=== PATIENT | female | born 1940 | race Caucasian/White ===

== ENCOUNTER → 2018-02-20 10:45 | Outpatient (CLI) | payer MEDICARE, SELFPAY | PROVIDERS: Visit Provider Nurse Practitioner Adult Health | DX: N76.0 Acute vaginitis (principal) | CPT/HCPCS: 87070; 87205 ==

== ENCOUNTER → 2018-04-05 09:50 | Outpatient (CLI) | payer MEDICARE, SELFPAY ==
--- NOTE | 2018-04-05 09:54 | BI_ITS ---
MAMMOGRAPHY - BILATERAL SCREENING REASON FOR EXAM: Female, 77 years old. Routine annual screening examination. PERTINENT HISTORY: Personal history of breast cancer. Prior right lumpectomy with radiation treatment. TECHNIQUE: Digital bilateral breast alan (3D mammographic acquisition) in the CC and MLO projections. 2-D mediolateral oblique (MLO) and craniocaudad (CC) views of both breasts were obtained. CAD: Full Field Digital Mammography with Computer Added Detection was performed. COMPARISON: Comparison is made with prior outside examination dated February 29, 2016. FINDINGS: Breast Composition: The breasts are heterogeneously dense, which may obscure small masses. There are no dominant masses or suspicious calcifications. Stable postoperative architectural distortion in the retroareolar region of the right breast in keeping with a history of prior lumpectomy. This is unchanged. No new mass lesion or cluster of microcalcification is seen. No other significant abnormalities are identified. There has been no significant change since the prior study. BI/SCREENING MAMM (CAD), BILAT IMPRESSION: Stable bilateral screening mammogram. Yearly follow-up mammogram recommended. (A) ASSESSMENT CATEGORY: BIRADS Category 2: Benign. A letter regarding these results will be sent to the patient by the facility within 30 days. Approximately 10% of breast cancers are not detected by mammography. A normal mammogram should not delay biopsy of a clinically suspicious abnormality. [id number] Electronically Signed: Braulio Harper MD at 10:52 EDT Tel [phone], Service support ,
== END ==
PROVIDERS: Visit Provider Family Medicine
DX: Z12.31 Encounter for screening mammogram for malignant neoplasm of breast (principal)
CPT/HCPCS: 77063; 77067

== ENCOUNTER → 2018-04-11 11:44 | Outpatient (CLI) | payer MEDICARE, SELFPAY ==
--- NOTE | 2018-04-11 11:48 | RAD_ITS ---
STUDY: X-RAY CHEST REASON FOR EXAM: Female, 77 years old. Cough TECHNIQUE: PA and lateral views of the chest. COMPARISON: None. FINDINGS: There is hyperinflation of the lungs consistent with chronic obstructive lung disease (COPD). Lungs are clear without acute airspace disease. There is no demonstrated pleural abnormality. Sternal cerclage wires and vascular clips are present from a prior sternotomy and coronary artery bypass graft procedure (CABG). Mild cardiomegaly. Normal mediastinum and yuri. Normal visualized pulmonary arteries. Normal visualized aortic arch and descending thoracic aorta. Normal visualized thoracic spine. Normal visualized ribs, clavicles, and shoulders. There is no demonstrated abnormality of the visualized soft tissue structures of the upper abdomen. RAD/Chest PA and Lateral IMPRESSION: COPD without acute findings. Electronically Signed: Tacho Madison DO at 11:12 EDT Tel , Service support ,
[2018-04-11 14:31] LABS: Hematocrit 41.6 % (37-47); Hemoglobin 14.3 g/dl (12.0-15.0); Mean Corp Hgb Conc 34.4 g/gl (32-36); Mean Corpuscular Hgb 32.2 pg (27.0-32.0); Mean Corpuscular Volume 93.7 fL (81-99); Mean Platelet Vol. 11.1 fl (6.2-12.0); Platelet Count 180 K/mm3 (150-450); RBC Distribution Width CV 13.9 % (11.6-14.6); RBC Distribution Width SD 45.9 fl (35.1-43.9); Red Blood Count 4.44 M/mm3 (4.2-5.4); White Blood Count 4.7 K/mm3 (4.4-11.0)
[2018-04-11 14:33] LABS: Scan Indicated on CBC? Y/N NO
[2018-04-11 15:03] LABS: Thyroid Stim Hormone (TSH) 1.27 uIU/mL (0.358-3.74)
== END ==
PROVIDERS: Family Provider Family Medicine; PCP Family Medicine; Visit Provider Family Medicine
DX: R05 Cough (principal); R53.83 Other fatigue
CPT/HCPCS: 36415; 71046; 84443; 85027

== ENCOUNTER → 2018-10-03 14:44 | Outpatient (CLI) | payer MEDICARE, SELFPAY ==
--- NOTE | 2018-10-03 14:49 | CT_ITS ---
STUDY: CT ABDOMEN AND PELVIS WITH CONTRAST REASON FOR EXAM: Female, 78 years old. Abdominal pain for 3 to 4 weeks. Bloating. History of hypertension and breast cancer. RADIATION DOSAGE (If Supplied By Facility): CTDIvol = ( 18.54 ) mGy, DLP = ( 838.33 ) mGycm TECHNIQUE: Transaxial images were obtained from the dome of the diaphragm to the symphysis pubis with oral contrast. 100mL ml of Isovue 300 contrast was administered. Sagittal and coronal images were reconstructed. Individualized dose optimization techniques were used for this CT. COMPARISON: None. FINDINGS: There is minimal atelectatic changes versus small mass in the right lateral costophrenic angle. The lungs appear otherwise clear. The heart is enlarged. The liver appears cirrhotic without mass. Normal gallbladder and extrahepatic biliary system. Normal spleen. Normal pancreas. There is a 1.6 x 1.6 x 2 cm low attenuation mass in the right adrenal gland consistent with adenoma. Normal left adrenal. There are multiple small cortical cysts. The right kidney is otherwise unremarkable. Normal left kidney. Normal visualized ureters. Mild thickening of the antral wall suggesting possible gastritis. The stomach is otherwise unremarkable. There is diffuse feces throughout the proximal colon. There is wall thickening and stranding with multiple diverticuli in the sigmoid consistent with acute diverticulitis. There is no evidence of perforation or abscess formation. Normal colon. There is non-visualization of the appendix. There are multiple mesenteric with prominence of both gonadal veins is also a large tortuous varices extending along the left mesentery through the proximal SMV at the level of the pancreatic head. Normal abdominal aorta. Normal inferior vena cava. Normal retroperitoneum. Normal urinary bladder. Normal uterus. There is no adnexal mass. No free air or free fluid is seen within the peritoneal cavity. Normal abdominal wall. There are degenerative changes of the lumbar spine with slight retrolisthesis of L2 on L3. CT/Abdomen/Pelvis WITH Contrast IMPRESSION: 1. Sigmoid diverticulitis without perforation or abscess. 2. Cirrhotic appearing liver without mass. 3. Mesenteric varices. 4. Right adrenal adenoma. 5. Degenerative changes of the lumbar spine. N.B. : The above information has been verbally conveyed by Yasmani Savage DO to Dr. Mj Groves MD, on 10/03/2018 19:18:43 (ET). Electronically Signed: Yasmani Savage DO at 18:29 EST Tel [phone], Service support ,
[2018-10-03 17:26] LABS: CREATININE FINGERSTICK 0.7 mg/dL (0.55-1.02); EGFR FINGERSTICK > 60.0000 mL/min (>60)
== END ==
PROVIDERS: Family Provider Family Medicine; PCP Family Medicine; Referring Provider Family Medicine; Visit Provider Family Medicine
DX: R10.9 Unspecified abdominal pain (principal)
CPT/HCPCS: 74177; Q9967; A4216

== ENCOUNTER → 2018-12-19 11:17 | Outpatient (CLI) | payer MEDICARE, SELFPAY ==
[2018-12-19 16:13] LABS: Thyroid Stim Hormone (TSH) 1.18 uIU/mL (0.358-3.74)
[2018-12-19 16:21] LABS: Absolute Lymphocyte Count 1.14 X10^3/ul (0.83-4.51); Basophil# 0.01 X10^3/uL; Basophil% 0.2 % (0-1); Eosinophils% 2.1 % (0-5); Hematocrit 42.9 % (37-47); Hemoglobin 13.8 g/dl (12.0-15.0); Lymphocyte # 1.14 X10^3/ul (4.0); Lymphocyte % 24.2 % (19-41); Mean Corp Hgb Conc 32.2 g/gl (32-36); Mean Corpuscular Hgb 30.3 pg (27.0-32.0); Mean Corpuscular Volume 94.3 fL (81-99); Mean Platelet Vol. 10.9 fl (6.2-12.0); Monocyte# 0.41 X10^3/uL; Monocyte% 8.7 % (0-10); Neutrophil # 3.04 X10^3/uL (2.7-7.7); Neutrophil % 64.6 % (47-70); Platelet Count 169 K/mm3 (150-450); RBC Distribution Width CV 15.3 % (11.6-14.6); RBC Distribution Width SD 51.5 fl (35.1-43.9); Red Blood Count 4.55 M/mm3 (4.2-5.4); White Blood Count 4.7 K/mm3 (4.4-11.0)
[2018-12-19 16:45] LABS: POSITIVE COUNT NO; POSITIVE DIFFERENTIAL NO; POSITIVE MORPHOLOGY NO
== END ==
PROVIDERS: Family Provider Family Medicine; PCP Family Medicine; Visit Provider Family Medicine
DX: R53.83 Other fatigue (principal)
CPT/HCPCS: 36415; 84443; 85025

== ENCOUNTER → 2019-01-01 08:13 | Outpatient (CLI) | payer MEDICARE, SELFPAY ==
[2019-01-01 10:38] LABS: Anion Gap 11 (5-15); BUN 14 mg/dL (7-18); BUN/Creat Ratio 22.6 RATIO (10-20); Calcium,Total 9.3 mg/dL (8.5-10.1); Chloride 108 mmol/L (98-107); Cholesterol 149 mg/dL (200); Creatinine, Serum 0.62 mg/dL (0.55-1.02); EST Glomerular Filtration Rate 99 mL/min (>60); Est Glom Filt Rate - Afr Amer 119 mL/min (>60); Glucose 125 mg/dL (74-106); High Density Lipoprotein 59 mg/dL; Potassium 3.6 mmol/L (3.5-5.1); Sodium Level 143 mmol/L (136-145); Triglycerides 75 mg/dL; Very Low Density Lipoprotein 15 mg/dL (5-40)
== END ==
PROVIDERS: Family Provider Family Medicine; PCP Family Medicine; Visit Provider Family Medicine
DX: Z00.00 Encounter for general adult medical examination without abnormal findings (principal)
CPT/HCPCS: 36415; 80048; 80061

== ENCOUNTER → 2019-04-10 | Outpatient (CLI) | payer MEDICARE, SELFPAY ==
[2019-01-07 10:26] VITALS: BMI 25.7
--- NOTE | 2019-04-10 10:38 | BI_ITS ---
MAMMOGRAPHY - BILATERAL SCREENING REASON FOR EXAM: Female, 78 years old. Routine annual screening examination. PERTINENT HISTORY: Personal history of breast cancer. Prior right lumpectomy and radiation treatment. TECHNIQUE: Digital bilateral breast alan (3D mammographic acquisition) in the CC and MLO projections. 2-D mediolateral oblique (MLO) and craniocaudad (CC) views of both breasts were obtained. CAD: Full Field Digital Mammography with Computer Added Detection was performed. COMPARISON: Comparison is made with prior outside examination dated February 25, 2015 and April 05, 2018. FINDINGS: Breast Composition: The breasts are heterogeneously dense, which may obscure small masses. There are no dominant masses or suspicious calcifications. Stable postoperative architectural distortion is seen in the retroareolar region of the right breast in keeping with prior lumpectomy. No new mass lesion or cluster of microcalcification is present. No other significant abnormalities are identified. There has been no significant change since the prior study. BI/SCREENING MAMM (CAD), BILAT IMPRESSION: Stable bilateral screening mammogram. Yearly follow-up mammogram recommended. (A) ASSESSMENT CATEGORY: BIRADS Category 2: Benign. A letter regarding these results will be sent to the patient by the facility within 30 days. Approximately 10% of breast cancers are not detected by mammography. A normal mammogram should not delay biopsy of a clinically suspicious abnormality. [id number] Electronically Signed: Braulio Harper, at 13:04 EDT , Service support ,
== END | disposition home or self-care (01) ==
PROVIDERS: Family Provider Family Medicine; PCP Family Medicine; Referring Provider Family Medicine; Visit Provider Family Medicine
DX: Z12.31 Encounter for screening mammogram for malignant neoplasm of breast (principal)
CPT/HCPCS: 77063; 77067

== ENCOUNTER → 2019-11-28 11:53 | Outpatient (CLI) | payer MEDICARE, SELFPAY ==
[2019-09-18 12:33] VITALS: BMI 26.2
[2019-11-28 14:17] LABS: Anion Gap 4 (5-15); BUN 12 mg/dL (7-18); BUN/Creat Ratio 18.9 RATIO (10-20); Calcium,Total 9.9 mg/dL (8.5-10.1); Chloride 111 mmol/L (98-107); Cholesterol 151 mg/dL (200); Creatinine, Serum 0.63 mg/dL (0.55-1.02); EST Glomerular Filtration Rate 96 mL/min (>60); Est Glom Filt Rate - Afr Amer 116 mL/min (>60); Glucose 100 mg/dL (74-106); High Density Lipoprotein 61 mg/dL; Potassium 3.7 mmol/L (3.5-5.1); Sodium Level 143 mmol/L (136-145); Triglycerides 72 mg/dL; Very Low Density Lipoprotein 14 mg/dL (5-40)
== END ==
PROVIDERS: PCP Family Medicine; Referring Provider Family Medicine; Visit Provider Family Medicine
DX: Z00.00 Encounter for general adult medical examination without abnormal findings (principal)
CPT/HCPCS: 36415; 80048; 80061

== ENCOUNTER → 2020-04-07 13:28 | Outpatient (CLI) | payer MEDICARE, SELFPAY ==
[2019-09-18 12:33] VITALS: BMI 26.2
--- NOTE | 2020-04-07 13:32 | VDLE_ITS ---
Reason For Study: swelling RIGHT GSV is normal. CFV is compressible, spontaneous, competent and demonstrates pulsatile venous flow. FV is compressible, spontaneous, competent and demonstrates pulsatile venous flow. POP V is compressible, spontaneous, competent and demonstrates pulsatile venous flow. T/P Trunk is compressible. PTV is compressible. RT PerV is compressible. Procedure Exam performed in department. The exam was abbreviated due to the COVID 19 protocol. The exam was diagnostic. A preliminary report was called and/or faxed to Dr. Morna. Interpretation Summary Deep veins of the right lower extremity are patent and compressible segmentally. There is no evidence of right lower extremity deep vein thrombosis. Valvular competence appears intact within the proximal deep venous system on the right . The right great saphenous vein appears patent and compressible segmentally. Pulsatile flow is noted in the deep venous system, which may be indicative of elevated central venous pressure (i.e. congestive heart failure, tricuspid valve insufficiency, etc.). Clinical correlation is advised. An abbreviated Covid-19 protocol was used. Ordering Physician: Jami Moran Performed By: Artemio Pickett RVT
== END ==
PROVIDERS: PCP Family Medicine; Referring Provider Family Medicine; Visit Provider Family Medicine
DX: M79.89 Other specified soft tissue disorders (principal)
CPT/HCPCS: 93971

== ENCOUNTER → 2020-04-14 15:22 | Outpatient (CLI) | payer MEDICARE, SELFPAY ==
[2019-09-18 12:33] VITALS: BMI 26.2
--- NOTE | 2020-04-14 15:24 | BI_ITS ---
MAMMOGRAPHY - BILATERAL SCREENING REASON FOR EXAM: Female, 79 years old. Routine annual screening examination. PERTINENT HISTORY: Personal history of breast cancer. History of prior right lumpectomy with radiation treatment. TECHNIQUE: Digital bilateral breast hakan (3D mammographic acquisition) in the CC and MLO projections. 2-D mediolateral oblique (MLO) and craniocaudad (CC) views of both breasts were obtained. CAD: Full Field Digital Mammography with Computer Added Detection was performed. COMPARISON: Comparison is made with prior examination dated April 10, 2019 and April 05, 2018. FINDINGS: Breast Composition: The breasts are heterogeneously dense, which may obscure small masses. There are no dominant masses or suspicious calcifications. Stable postoperative architectural distortion is once again seen at the 12:00 position of the right breast in keeping with history of prior lumpectomy. No other significant abnormalities are identified. There has been no significant change since the prior study. BI/SCREEN MAMM (CAD) W/HAKAN BILAT IMPRESSION: Stable bilateral screening mammogram. Yearly follow-up mammogram recommended. (A) ASSESSMENT CATEGORY: BIRADS Category 2: Benign. A letter regarding these results will be sent to the patient by the facility within 30 days. Approximately 10% of breast cancers are not detected by mammography. A normal mammogram should not delay biopsy of a clinically suspicious abnormality. [id number] Electronically Signed: Braulio Harper, at 9:04 EDT , Service support ,
== END ==
PROVIDERS: PCP Family Medicine; Referring Provider Family Medicine; Visit Provider Family Medicine
DX: Z12.31 Encounter for screening mammogram for malignant neoplasm of breast (principal)
CPT/HCPCS: 77063; 77067

== ENCOUNTER → 2020-04-20 | Outpatient (CLI) | payer MEDICARE, SELFPAY ==
[2019-09-18 12:33] VITALS: BMI 26.2
--- NOTE | 2020-04-20 14:42 | CT_ITS ---
STUDY: CT ABDOMEN AND PELVIS WITH CONTRAST REASON FOR EXAM: Female, 79 years old. Right leg swelling RADIATION DOSAGE (If Supplied By Facility): CTDIvol = ( 20.69 ) mGy, DLP = ( 721.00 ) mGycm TECHNIQUE: Transaxial images were obtained from the dome of the diaphragm to the symphysis pubis without oral contrast. Oral and amp; IV Readi-CAT and amp; 100mL Isovue-300 was administered. Sagittal and coronal images were reconstructed. Individualized dose optimization techniques were used for this CT. COMPARISON: 10/03/2018 FINDINGS: The visualized lung bases are unremarkable. The visualized portions of the heart are within normal limits. Normal liver. Normal gallbladder and extrahepatic biliary system. Normal spleen. Normal pancreas. No change in 1.5 cm adenoma the right adrenal gland. Normal right kidney. Normal left kidney. Normal visualized stomach. Normal small intestine. There is diverticulosis, with thickening of the colon wall, and pericolonic inflammation changes consistent with acute diverticulitis. No loculated fluid collection to suggest abscess. No pneumoperitoneum to suggest macro perforation. The appendix is visualized and appears normal. Normal abdominal aorta. Normal inferior vena cava. Prominent left ovarian vein and parametrial veins suggestive of pelvic congestion syndrome. Normal urinary bladder. Normal abdominal wall. Normal osseous structures. CT/Abdomen/Pelvis WITH Contrast IMPRESSION: Sigmoid diverticulitis. No abscess or perforation. Electronically Signed: Angelo Ricketts MD at 15:25 EDT Tel , Service support ,
[2020-04-20 15:00] LABS: CREATININE FINGERSTICK < 0.6 mg/dL (0.55-1.02); EGFR FINGERSTICK > 60.0000 mL/min (>60)
== END | disposition home or self-care (01) ==
PROVIDERS: PCP Family Medicine; Referring Provider Family Medicine; Visit Provider Family Medicine
DX: M79.89 Other specified soft tissue disorders (principal)
CPT/HCPCS: 74177; Q9967

== ENCOUNTER → 2020-05-01 10:40 | Outpatient (CLI) | payer MEDICARE, SELFPAY ==
[2020-04-23 14:10] VITALS: BMI 25.6
--- NOTE | 2020-05-01 10:41 | ECHOD_ITS ---
Reason For Study: CHF Procedure This was a 2D Doppler, Color Flow transthoracic echocardiogram. Exam performed in department. Left Ventricle Normal LV size. Left ventricular systolic function is normal. The estimated ejection fraction is 55 %. No regional wall motion abnormalities noted. Right Ventricle Normal RV size. Mild global right ventricular systolic dysfunction. Atria The left atrium is moderately enlarged. The right atrium is moderately enlarged. Probable chiari network. Mitral Valve Bileaflet diffuse mitral valve thickening. Mild (1+) eccentric mitral valve insufficiency. Tricuspid Valve Normal tricuspid valve. Mild to moderate (1-2+) tricuspid valve insufficiency. Pulmonary artery systolic pressure is 30 mmHg. Aortic Valve Trisinus/trileaflet aortic valve. Mild diffuse aortic valve thickening. Mild (1+) aortic valve insufficiency. Pulmonic Valve The pulmonic valve is not well visualized. Great Vessels Normal aortic root. The pulmonary artery is normal size. Inferior vena cava collapse with respiration. Pericardium/Pleural No pericardial effusion. MMode/2D Measurements & Calculations LVIDd: 4.8 cm IVSd: 1.2 cm Ao root diam: 3.5 cm LVIDs: 3.1 cm LVPWd: 1.2 cm RVDd: 4.2 cm FS: 35.5 % LAV(MOD-bp): 95.6 ml LA A4 area: 29.1 cm2 LA dimension(2D): 4.4 cm LAV(MOD-bp) Indexed: 54.0 ml/m2 LAV(MOD-sp2): 95.5 ml LAV(MOD-sp4): 95.7 ml RA A4 area: 28.6 cm2 Doppler Measurements & Calculations MV E max surjit: 87.5 cm/sec Ao V2 max: 175.8 cm/sec AI max surjit: 485.3 cm/sec MV A max surjit: 41.6 cm/sec Ao max P.4 mmHg AI max P.2 mmHg MV E/A: 2.1 Ao V2 mean: 112.2 cm/sec AI dec slope: 156.8 cm/sec2 Ao mean P.7 mmHg AI P1/2t: 906.2 msec Ao V2 VTI: 36.9 cm LV V1 max: 114.7 cm/sec PA V2 max: 75.4 cm/sec TR max sujrit: 284.5 cm/sec LV V1 max P.3 mmHg TR max P.9 mmHg LV V1 mean P.0 mmHg LV V1 mean: 82.9 cm/sec LV V1 VTI: 26.3 cm Interpretation Summary Normal LV size. Left ventricular systolic function is normal. The estimated ejection fraction is 55 %. No regional wall motion abnormalities noted. Mild diffuse aortic valve thickening. Mild (1+) aortic valve insufficiency. Mild (1+) eccentric mitral valve insufficiency. Ordering Physician: Felisha Benavides Referring Physician: Koko Smith Performed By: Isa Mason, DORENE, RVT
[2020-05-01 11:45] LABS: Anion Gap 4 (5-15); BUN 10 mg/dL (7-18); BUN/Creat Ratio 13.7 RATIO (10-20); Calcium,Total 9.6 mg/dL (8.5-10.1); Chloride 104 mmol/L (98-107); Creatinine, Serum 0.73 mg/dL (0.55-1.02); EST Glomerular Filtration Rate 81 mL/min (>60); Est Glom Filt Rate - Afr Amer 98 mL/min (>60); Glucose 196 mg/dL (74-106); Potassium 3.2 mmol/L (3.5-5.1); Sodium Level 140 mmol/L (136-145)
== END ==
PROVIDERS: PCP Family Medicine; Referring Provider Physician Assistant Medical; Visit Provider Physician Assistant Medical
DX: R06.09 Other forms of dyspnea (principal); I48.20 Chronic atrial fibrillation, unspecified; I10 Essential (primary) hypertension; I27.21 Secondary pulmonary arterial hypertension
CPT/HCPCS: 36415; 80048; 93306

== ENCOUNTER → 2020-07-22 16:17 | Outpatient (CLI) | payer MEDICARE, SELFPAY ==
[2020-07-22 16:07] VITALS: BMI 25.6
[2020-07-22 17:05] LABS: International Normalized Ratio 2.4; Prothrombin Time (Protime)PT. 25.9 SECONDS (11.7-14.9)
== END ==
PROVIDERS: PCP Family Medicine; Visit Provider Physician Assistant Medical
DX: I48.20 Chronic atrial fibrillation, unspecified (principal)
CPT/HCPCS: 36415; 85610

== ENCOUNTER → 2020-09-17 15:52 | Outpatient (CLI) | payer MEDICARE, SELFPAY ==
[2020-07-22 16:07] VITALS: BMI 25.6
[2020-09-17 18:01] LABS: Anion Gap 6 (5-15); BUN 15 mg/dL (7-18); BUN/Creat Ratio 19.3 RATIO (10-20); Calcium,Total 10.4 mg/dL (8.5-10.1); Chloride 108 mmol/L (98-107); Cholesterol 163 mg/dL (200); Creatinine, Serum 0.78 mg/dL (0.55-1.02); EST Glomerular Filtration Rate 76 mL/min (>60); Est Glom Filt Rate - Afr Amer 91 mL/min (>60); Glucose 113 mg/dL (74-106); High Density Lipoprotein 75 mg/dL; Potassium 3.5 mmol/L (3.5-5.1); Sodium Level 141 mmol/L (136-145); Triglycerides 80 mg/dL; Very Low Density Lipoprotein 16 mg/dL (5-40)
== END ==
PROVIDERS: PCP Family Medicine; Referring Provider Family Medicine; Visit Provider Family Medicine
DX: I10 Essential (primary) hypertension (principal)
CPT/HCPCS: 36415; 80048; 80061

== ENCOUNTER → 2020-12-21 13:24 | Outpatient (CLI) | payer MEDICARE, SELFPAY ==
[2020-10-28 15:30] VITALS: BMI 25.9
--- NOTE | 2020-12-21 13:27 | VDLE_ITS ---
Reason For Study: Right leg swelling RIGHT LEFT GSV is normal. CFV is compressible, spontaneous, competent, CFV is compressible, spontaneous, competent and demonstrates pulsatile venous flow. and demonstrates pulsatile venous flow. FV is compressible, spontaneous, competent and demonstrates pulsatile venous flow. POP V is compressible, spontaneous, competent and demonstrates pulsatile venous flow. T/P Trunk is compressible. PTV is compressible. RT PerV is compressible. Procedure This is a venous duplex using B-mode, color flow and spectral Doppler. Exam performed in department. A preliminary report was called and/or faxed to [facility]. Interpretation Summary Deep veins of the right lower extremity are patent and compressible segmentally. There is no evidence of right lower extremity deep vein thrombosis. Valvular competence appears intact within the proximal deep venous system on the right . The right great saphenous vein appears patent and compressible segmentally. Pulsatile flow is noted in the deep venous system on the right, which may be indicative of elevated central venous pressure (i.e. congestive heart failure, tricuspid valve insufficiency, etc.). Clinical correlation is advised. Ordering Physician: Jami Moran Referring Physician: Koko Smith Performed By: Dalila Troncoso RVT
== END ==
PROVIDERS: PCP Family Medicine; Referring Provider Family Medicine; Visit Provider Family Medicine
DX: M79.89 Other specified soft tissue disorders (principal)
CPT/HCPCS: 93971

== ENCOUNTER → 2021-01-08 14:51 | Outpatient (CLI) | payer MEDICARE, SELFPAY ==
[2020-10-28 15:30] VITALS: BMI 25.9
[2021-01-08 17:39] LABS: Anion Gap 6 (5-15); BUN 10 mg/dL (7-18); BUN/Creat Ratio 14.2 RATIO (10-20); Calcium,Total 9.6 mg/dL (8.5-10.1); Chloride 109 mmol/L (98-107); EST Glomerular Filtration Rate 84 mL/min (>60); Est Glom Filt Rate - Afr Amer 102 mL/min (>60); Glucose 114 mg/dL (74-106); Potassium 4.2 mmol/L (3.5-5.1); Sodium Level 140 mmol/L (136-145)
== END ==
PROVIDERS: PCP Family Medicine; Referring Provider Family Medicine; Visit Provider Family Medicine
DX: R60.9 Edema, unspecified (principal)
CPT/HCPCS: 36415; 80048

== ENCOUNTER → 2021-01-22 14:34 | Outpatient (CLI) | payer MEDICARE, SELFPAY ==
[2020-10-28 15:30] VITALS: BMI 25.9
[2021-01-22 17:48] LABS: Anion Gap 8 (5-15); BUN 14 mg/dL (7-18); Calcium,Total 10.2 mg/dL (8.5-10.1); Chloride 104 mmol/L (98-107); Creatinine, Serum 0.74 mg/dL (0.55-1.02); EST Glomerular Filtration Rate 80 mL/min (>60); Est Glom Filt Rate - Afr Amer 97 mL/min (>60); Glucose 165 mg/dL (74-106); Potassium 3.5 mmol/L (3.5-5.1); Sodium Level 141 mmol/L (136-145)
== END ==
PROVIDERS: PCP Family Medicine; Referring Provider Family Medicine; Visit Provider Family Medicine
DX: R60.9 Edema, unspecified (principal)
CPT/HCPCS: 36415; 80048

== ENCOUNTER → 2021-02-19 14:38 | Outpatient (CLI) | payer MEDICARE, SELFPAY ==
[2021-02-17 15:47] VITALS: BMI 26.8
[2021-02-19 18:18] LABS: Anion Gap 5 (5-15); BUN 12 mg/dL (7-18); BUN/Creat Ratio 16.9 RATIO (10-20); Calcium,Total 9.8 mg/dL (8.5-10.1); Chloride 105 mmol/L (98-107); Creatinine, Serum 0.71 mg/dL (0.55-1.02); EST Glomerular Filtration Rate 84 mL/min (>60); Est Glom Filt Rate - Afr Amer 101 mL/min (>60); Glucose 207 mg/dL (74-106); Potassium 3.4 mmol/L (3.5-5.1); Sodium Level 139 mmol/L (136-145)
== END ==
PROVIDERS: PCP Family Medicine; Referring Provider Family Medicine; Visit Provider Family Medicine
DX: R60.9 Edema, unspecified (principal)
CPT/HCPCS: 36415; 80048

== ENCOUNTER → 2021-03-18 14:36 | Outpatient (CLI) | payer MEDICARE, SELFPAY ==
[2021-02-17 15:47] VITALS: BMI 26.8
[2021-03-18 18:18] LABS: Anion Gap 7 (5-15); BUN 15 mg/dL (7-18); BUN/Creat Ratio 17.1 RATIO (10-20); Chloride 102 mmol/L (98-107); Cholesterol 178 mg/dL (200); Creatinine, Serum 0.88 mg/dL (0.55-1.02); EST Glomerular Filtration Rate 65 mL/min (>60); Est Glom Filt Rate - Afr Amer 79 mL/min (>60); Glucose 113 mg/dL (74-106); High Density Lipoprotein 67 mg/dL; Potassium 4.1 mmol/L (3.5-5.1); Sodium Level 138 mmol/L (136-145); Triglycerides 170 mg/dL; Very Low Density Lipoprotein 34 mg/dL (5-40)
== END ==
PROVIDERS: PCP Family Medicine; Referring Provider Family Medicine; Visit Provider Family Medicine
DX: I10 Essential (primary) hypertension (principal); R60.9 Edema, unspecified
CPT/HCPCS: 36415; 80048; 80061

== ENCOUNTER → 2021-05-05 14:27 | Outpatient (CLI) | payer MEDICARE, SELFPAY ==
[2021-02-17 15:47] VITALS: BMI 26.8
--- NOTE | 2021-05-05 14:55 | RAD_ITS ---
STUDY: X-RAY - RIGHT SHOULDER REASON FOR EXAM: Female, 80 years old. Shoulder pain. TECHNIQUE: 3 view(s) of the shoulder. COMPARISON: None. FINDINGS: Generalized osteopenia. Normal glenohumeral articulation. Mild arthrosis of the AC joint. Normal acromion. Sclerosis and cystic change of the greater tuberosity of the humeral head. The soft tissue structures are unremarkable. Normal visualized pulmonary apex. RAD/Shoulder min 2 Views IMPRESSION: Osteopenia with osteoarthritic changes as described. No acute finding. Electronically Signed: Chico Parmar MD at 10:51 EDT , Service support ,
== END ==
PROVIDERS: PCP Family Medicine; Referring Provider Family Medicine; Visit Provider Family Medicine
DX: M25.511 Pain in right shoulder (principal)
CPT/HCPCS: 73030

== ENCOUNTER 2021-05-11 16:03 | Emergency (ER) | payer MEDICARE, SELFPAY ==
[2021-02-17 15:47] VITALS: BMI 26.8
[2021-05-11] VITALS (13 sets, daily range): BP systolic 95–120; BP diastolic 52–76; PULSE 64–120; RESP 14–25; TEMP 37.2–39.2; O2SAT 94–100; BMI 24.3
--- NOTE | 2021-05-11 16:04 | CT_ITS ---
STUDY: CT HEAD STROKE PROTOCOL W/O CONTRAST INJECTION REASON FOR EXAM: Female, 80 years old. Neuro deficit, acute, stroke suspected RADIATION DOSAGE (If Supplied By Facility): CTDIvol = ( ) mGy, DLP = ( ) mGycm TECHNIQUE: Transaxial CT imaging of the brain was performed without administration of intravenous contrast material. Individualized dose optimization techniques were used for this CT. COMPARISON: No relevant priors. FINDINGS: Normal soft tissue structures. Normal calvarium. There is mild cerebral atrophy with widening of the extra-axial spaces and ventricular dilatation. Normal white matter tracts of the cerebral hemispheres. Normal basal ganglia and thalami. Normal brainstem. Normal cerebellum. 3.5 cm round area of increased attenuation within the periventricular white matter of the anterior left parietal lobe consistent with an acute parenchymal hematoma, likely hypertensive hemorrhage. There is associated acute subarachnoid hemorrhage surrounding the entire left hemisphere. There is associated mass effect with effacement of the sulci of the left hemisphere and 5 mm of left right midline shift (subfalcine herniation). There are no findings of an acute ischemic infarction. Normal visualized paranasal sinuses. ASPECT score: CT/STROKE Brain/Head without Cont IMPRESSION: Acute 3.5 cm hematoma of the anterior left parietal lobe with associated subarachnoid hemorrhage and mass effect including 5 mL of left right midline shift (subfalcine herniation). N.B. : The above Results were Read Back by Angelo Ricketts MD to Alexsandra Price MD, and understanding confirmed on 05/11/2021 16:23:46 (ET). Electronically Signed: Angelo Ricketts MD at 16:24 EDT Tel , Service support ,
--- NOTE | 2021-05-11 16:04 | EKG12_ITS ---
Test Reason : STROKE Blood Pressure : / mmHG Vent. Rate : 084 BPM Atrial Rate : 088 BPM P-R Int : 000 ms QRS Dur : 092 ms QT Int : 410 ms P-R-T Axes : 000 -12 020 degrees QTc Int : 484 ms Atrial fibrillation with premature ventricular or aberrantly conducted complexes ST & T wave abnormality, consider inferior ischemia Prolonged QT Abnormal ECG Confirmed by NAY CHEUNG, JAVI ([id number]), visual effects editor JUANY HODGES ([id number]) on 05/12/2021 10:41:32 AM Referred By: JENNA Confirmed By:JAVI TEE MD
[2021-05-11 16:26] LABS: Absolute Lymphocyte Count 1.25 X10^3/uL (0.83-4.51); Absolute Neutrophil Count 16.3 X10^3/uL (2.0-7.7); Basophil# 0.03 X10^3/uL; Basophil% 0.2 % (0-1); Hematocrit 41.5 % (37-47); Hemoglobin 14.8 g/dL (12.0-15.0); Lymphocyte # 1.25 X10^3/ul (0.83-4.51); Lymphocyte % 6.4 % (19-41); Mean Corp Hgb Conc 35.7 g/dL (32-36); Mean Corpuscular Hgb 31.2 pg (27.0-32.0); Mean Corpuscular Volume 87.6 fL (81-99); Mean Platelet Vol. 11.1 fl (6.2-12.0); Monocyte# 1.97 X10^3/uL; NRBC Flagged by Analyzer 0 % (0-5); Neutrophil % 82.8 % (47-70); POSITIVE DIFFERENTIAL YES; Platelet Count 210 K/mm3 (150-450); RBC Distribution Width CV 13.6 % (11.6-14.6); RBC Distribution Width SD 43.8 fl (35.1-43.9); Red Blood Count 4.74 M/mm3 (4.2-5.4); White Blood Count 19.7 K/mm3 (4.4-11.0)
[2021-05-11 16:28] LABS: Differential Indicated SCAN CRITERIA MET
[2021-05-11] MEDS: Etomidate 20 MG/10 ML Vial IV (16:28)
[2021-05-11] MEDS: Rocuronium Bromide 50 MG/5 ML Vial 70 MG IV (16:32)
--- NOTE | 2021-05-11 16:32 | ED.VIS.STROK ---
HPI History of Present Illness Chief Complaint: Neuro S/Sx Informant: family and EMS Narrative Narrative: Patient is an 80 year old female with history of atrial fibrillation on Coumadin presenting from home via EMS after being found unresponsive. Patient was at her recliner chair. She was last seen on Monday. Son noticed at that time she seemed kind of dazed and out of it. Patient lives home independently. She is on Coumadin for atrial fibrillation. [facility] Medical History (Updated 05/11/21 @ 23:[address] Alexsandra Price DO) Chronic atrial fibrillation Diverticulosis Essential hypertension History of pulmonary valve stenosis Insomnia Secondary pulmonary arterial hypertension Venous insufficiency of both lower extremities Home Medications vitamin B complex 1 tab PO DAILY 01/07/19 [History Last Taken Unknown] warfarin 2 mg tablet 2 mg PO DAILY 01/07/19 [History Last Taken Unknown] trazodone 50 mg tablet 50 mg PO QHS 09/06/19 [History Last Taken Unknown] potassium chloride 10 mEq capsule,extended release 10 meq PO DAILY #90 cap 05/04/20 [Rx Last Taken Unknown] lisinopril 40 mg tablet 40 mg PO DAILY #30 tab 07/22/20 [Rx Last Taken Unknown] calcium carbonate 600 mg calcium (1,500 mg)-vit D3 1,000 unit capsule cap PO DAILY cap 11/03/20 [History Last Taken Unknown] cholecalciferol (vitamin D3) 50 mcg (2,000 unit) capsule 50 mcg PO DAILY 11/03/20 [History Last Taken Unknown] metoprolol tartrate 50 mg tablet 50 mg PO DAILY 11/03/20 [History Last Taken Unknown] amlodipine 5 mg tablet 5 mg PO DAILY #30 tab 11/04/20 [Rx Last Taken Unknown] furosemide 20 mg tablet 40 mg PO DAILY tablet 02/17/21 [History Last Taken Unknown] Allergy/AdvReac Type Severity Reaction Status Date / Time No Known Allergies Allergy Verified 05/11/21 16:52 Surgical History History of pulmonic valvulotomy (~1970) Social History Smoking Status: Never smoker alcohol intake: never ROS ROS ED Review of Systems ROS Unobtainable: due to mental status EXAM Physical Exam Const Vital Signs: 05/11/21 16:04 05/11/21 16:14 05/11/21 16:17 Temperature 102.6 F H Temperature Source Temporal Pulse Rate 120 H 110 H 102 H Respiratory Rate 16 18 22 H Respiratory Pattern Blood Pressure 120/76 114/72 114/72 Blood Pressure Mean 90 86 86 Pulse Ox 94 94 94 Oxygen Delivery Method Room Air Room Air Room Air Fraction of Inspired Oxygen (FIO2) 05/11/21 16:33 05/11/21 16:39 05/11/21 16:53 Temperature 99.4 F H Temperature Source Temporal Pulse Rate 78 102 H Respiratory Rate 24 H 19 H Respiratory Pattern Normal Blood Pressure 117/72 Blood Pressure Mean 87 Pulse Ox 100 97 97 Oxygen Delivery Method Mechanical Ventilator Mechanical Ventilator Fraction of Inspired Oxygen (FIO2) 50 05/11/21 17:11 05/11/21 17:30 05/11/21 18:00 Temperature 99 F 101.7 F H Temperature Source Temporal Core Pulse Rate 64 86 88 Respiratory Rate 14 24 H 25 H Respiratory Pattern Blood Pressure 109/69 107/57 L 97/52 L Blood Pressure Mean 82 73 67 Pulse Ox 100 98 100 Oxygen Delivery Method Mechanical Ventilator Mechanical Ventilator Mechanical Ventilator Fraction of Inspired Oxygen (FIO2) 05/11/21 18:15 05/11/21 18:22 05/11/21 20:05 Temperature 101.7 F H Temperature Source Core Pulse Rate 87 Respiratory Rate 25 H Respiratory Pattern Blood Pressure 95/59 L Blood Pressure Mean 71 Pulse Ox 99 100 95 Oxygen Delivery Method Mechanical Ventilator Room Air Fraction of Inspired Oxygen (FIO2) 40 05/11/21 22:00 Temperature 101 F H Temperature Source Core Pulse Rate 64 Respiratory Rate Respiratory Pattern Blood Pressure Blood Pressure Mean Pulse Ox Oxygen Delivery Method Fraction of Inspired Oxygen (FIO2) Positive unkempt General Appearance ED: unkempt and other Distressed HEENT Reports TM's clear and dry mucous membranes atraumatic Tympanic Membrane ED: Yes TM's clear Mouth ED: Yes dry mucous membranes Mouth: dry mucous membranes Eyes PERRL Eyes Narrative: Gaze deviation to the left bilaterally Neck supple and no JVD Chest Wall inspection of chest normal Resp clear to auscultation bilaterally Resp Narrative: Tachypneic Auscultation: Negative for wheezes Cardio Cardio Narrative: Irregularly irregular, tachycardic GI normal to inspection, nondistended, normoactive bowel sounds Extremity Extremity Narrative: Edema of the right hand noted. No area of tenderness obvious. Neuro Sensorium / Orientation: obtunded Cranial Nerves: CN VII (facial) Laterality: right Speech: total aphasia Psych Appearance: unkempt Skin no wounds Skin Narrative: Petechial rash noted over right hand STROKE Vital Signs/Narrative: Vital Signs Temp Pulse Pulse Ox 05/11/21 22:00 101 F H 64 05/11/21 20:05 95 Inital Vital Signs reviewed: Yes NIHSS Initial: 1a Level of Consciousness: 2 1b LOC Questions (Score 2 if aphasic/stupor): 2 1c LOC Commands (Only score 1st attempt): 2 2 Best Gaze (If aphasic, use reflexive mvmts.): 2 3 Visual: 0 4 Facial Palsy: 1 5 Motor Arm Right (UN = amputation/fusion): 3 5 Motor Arm Left: 1 6 Motor Leg Right: 3 6 Motor Leg Left: 1 7 Limb ataxia (Only + if out of proportion): 0 8 Sensory (Aphasia/stupor=0 or 1, coma=2): 0 9 Best Language: 3 10 Dysarthria (mute, coma=2, intubated=UN): 2 11 Extinction and Inattention (only scored if +): 1 Total Score: 23 MDM MDM MDM Narrative Medical decision making narrative: Patient evaluated for being found unresponsive and altered. She appears to have had a profound stroke. Stroke alert was called in route. CT shows significant intracranial hemorrhage. Patient's family to she says they would like her to go to [facility]. They do not know what her CODE STATUS is. We do not have the records of a CODE STATUS. Patient is on Coumadin and INR is 5.5. She is reversed with Kcentra and given vitamin K. She has multiple laboratory of malaise include a leukocytosis of 19.7. And in addition she has DKA with a creatinine of 2.28, her baseline is 0.8. Her CPK is elevated at 7000 and her high-sensitivity troponin is elevated at 731. I suspect patient is rhabdomyolysis probably from being in her chair for prolonged time before she was found with associated kidney injury and NSTEMI. We will not give aspirin or heparin to treat the NSTEMI secondary to her intracranial hemorrhage. While patient is in the ER she does start to seize after being in the CT. Of concern she is unable to protect her airway and I did intubate her. See procedure note. Spoke with transfer line and neuro ICU/neurosurgery who reviewed the CT. They informed me that they will be happy to accept her however she would not be a surgical candidate based on her CT and presentation and overall it have a poor prognosis. This is relayed to the family. They would like to delay transfer until her other son and daughter are at the bedside to decide whether they want to make her hospice or go through with transfer. I did explain that with her stroke she would likely have profound deficits even if she does recover. Family did decide to make her DNR comfort care only. Patient is evaluated by hospice and ultimately transferred to hospice inpatient. Family was agreeable with this plan of care. Patient was extubated in the ER by myself. Lab Data Labs: Laboratory Results - last 24 hr 05/11/21 05/11/21 05/11/21 16:15 16:15 16:15 WBC 19.7 H RBC 4.74 Hgb 14.8 Hct 41.5 MCV 87.6 MCH 31.2 MCHC 35.7 RDW Std Deviation 43.8 RDW Coeff of Quinn 13.6 Plt Count 210 MPV 11.1 Immature Gran % (Auto) 0.600 Neut % (Auto) 82.8 H Lymph % (Auto) 6.4 L [place] % (Auto) 10.0 Eos % (Auto) 0.0 Baso % (Auto) 0.2 Absolute Neuts (auto) 16.3 H Absolute Lymphs (auto) 1.25 Nucleated RBC % 0 Differential Comment SCANNED Diff Path Review March foll PT 49.3 H INR 5.5 H* APTT 62.2 H Sodium 134 L Potassium 4.2 Chloride 103 Carbon Dioxide 17.0 L Anion Gap 14 BUN 51 H Creatinine 2.28 H Estim Creat Clear Calc 17.81 Est GFR (MDRD) Af Amer 26 L Est GFR (MDRD) Non-Af 22 L BUN/Creatinine Ratio 22.4 H Glucose 182 H Calcium 11.0 H Total Creatine Kinase 7135 H Troponin I High Sens 731.5 H* Radiography Diagnostic Testing: Radiology Impression Brain CT 05/11/21 16:04 IMPRESSION: Acute 3.5 cm hematoma of the anterior left parietal lobe with associated subarachnoid hemorrhage and mass effect including 5 mL of left right midline shift (subfalcine herniation). N.B. : The above Results were Read Back by Angelo Ricketts MD to Alexsandra Price MD, and understanding confirmed on 05/11/2021 16:23:46 (ET). Electronically Signed: Angelo Ricketts MD at 16:24 EDT Tel , Service support , ADDENDUM: 05/11/21 1631 IMPRESSION: Acute 3.5 cm hematoma of the anterior left parietal lobe with associated subarachnoid hemorrhage and mass effect including 5 mL of left right midline shift (subfalcine herniation). N.B. : The above Results were Read Back by Angelo Ricketts MD to Alexsandra Price MD, and understanding confirmed on 05/11/2021 16:23:46 (ET). Electronically Signed: Angelo Ricketts MD at 16:24 EDT Tel , Service support , Chest X-Ray 05/11/21 16:36 IMPRESSION: 1. Interval placement of endotracheal tube with the tip approximately 2 cm above the cyn. 2. Interval placement of nasogastric tube with the tip below the diaphragm. 3. No active disease. Electronically Signed: Angelo Ricketts MD at 17:02 EDT Tel , Service support , Rhythm Strip Rhythm Strip: A-fib Rate: 84 Ectopy: PVC(s) EKG Initial EKG: Attestation: I personally reviewed and interpreted this EKG as follows: Interpretation: Atrial Fibrillation Comments: Atrial fibrillation at a rate of [address] depressions noted in inferior as well as precordial leads QTc 484 Left axis deviation Stroke Documentation Questions Stroke Team Activated: Yes Reviewed Inclusion/Exclusion criteria: Yes Was Patient considered for Endovascular Intervention?: No IV Alteplase (t-PA) Administered: No Procedures Intubations Intubation Method: orotracheal Intubation Verification: Positive color change and Bilateral breath sounds confirmed Intubation Complications: no complications (7-0, 23 at the lip) Critical Care Time Critical Care Time: Yes Critical care time (excluding procedures): 30-74 minutes (60), Discussing w/Patient &/or Family/Base Cloth Inspector, Discussing w/Consultants and Arranging Admission or Transfer Discharge Plan Triage Chief Complaint: Neuro S/Sx ED Provider: Alexsandra Price Dx/Rx/DC Orders Clinical Impression: Hemorrhagic stroke, Seizures, Acute renal failure due to rhabdomyolysis, Non-ST elevation IA (NSTEMI), DNR (do not resuscitate) discussion Prescriptions: No Action warfarin 2 mg tablet 2 mg PO DAILY RF: 0 vitamin B complex [B Complex-Vitamin B12] tablet 1 tab PO DAILY RF: 0 trazodone 50 mg tablet 50 mg PO QHS RF: 0 lisinopril 40 mg tablet 40 mg PO DAILY Qty: 30 RF: 11 furosemide [Lasix] 20 mg tablet 40 mg PO DAILY RF: 0 metoprolol tartrate 50 mg tablet 50 mg PO DAILY RF: 0 calcium carbonate 600 mg calcium (1,500 mg)-vit D3 1,000 unit capsule 600mg (1,500mg) -1,000 unit capsule PO DAILY RF: 0 cholecalciferol (vitamin D3) 50 mcg (2,000 unit) capsule 50 mcg PO DAILY RF: 0 amlodipine [Norvasc] 5 mg tablet 5 mg PO DAILY Qty: 30 RF: 11 potassium chloride 10 mEq capsule, extended release 10 meq PO DAILY Qty: 90 RF: 3 Primary Care Provider: Koko Smith Referrals: Koko Smith MD [Primary Care Provider] - Disposition Disposition: Hospice in Medical Facility Discharge Location: [facility] Discharge Date/Time: 05/11/21 23:50
--- NOTE | 2021-05-11 16:36 | RAD_ITS ---
STUDY: X-RAY CHEST REASON FOR EXAM: Female, 80 years old. Neuro deficit, acute, stroke suspected TECHNIQUE: Single AP portable view of the chest. COMPARISON: 04/11/2018 FINDINGS: Interval placement of endotracheal tube with the tip approximately 2 cm above the cyn. Interval placement of nasogastric tube with the tip below the diaphragm. Status post median sternotomy. The lungs are clear and expanded. There is no demonstrated pleural abnormality. There is moderate cardiac enlargement. Normal mediastinum and yuri. Normal visualized pulmonary arteries. Normal visualized aortic arch and descending thoracic aorta. Normal visualized thoracic spine. Normal visualized ribs, clavicles, and shoulders. There is no demonstrated abnormality of the visualized soft tissue structures of the upper abdomen. RAD/Chest 1 View IMPRESSION: 1. Interval placement of endotracheal tube with the tip approximately 2 cm above the cyn. 2. Interval placement of nasogastric tube with the tip below the diaphragm. 3. No active disease. Electronically Signed: Angelo Ricketts MD at 17:02 EDT Tel , Service support ,
[2021-05-11 16:37] LABS: Partial Thromboplast Time 62.2 Seconds (24.1-36.2); Prothrombin Time (Protime)PT. 49.3 SECONDS (11.7-14.9)
[2021-05-11 16:42] LABS: International Normalized Ratio 5.5
[2021-05-11 16:45] LABS: Differential Comment SCANNED
[2021-05-11] MEDS: Propofol 10MG/Ml 1,000 MG/100 ML Bottle 4.1 MG CONT INF (16:56)
[2021-05-11] MEDS: HUMAN PROTHROMBIN COMPLX(PCC) 2,500 UNIT in Viaflex Bag 1 BAG 8.2 UNIT IV (17:07)
[2021-05-11 17:09] LABS: Anion Gap 14 (5-15); BUN 51 mg/dL (7-18); BUN/Creat Ratio 22.4 RATIO (10-20); CPK Total, Creatine Kinase 7135 U/L (26-192); Chloride 103 mmol/L (98-107); Creatinine, Serum 2.28 mg/dL (0.55-1.02); EST Glomerular Filtration Rate 22 mL/min (>60); Est Glom Filt Rate - Afr Amer 26 mL/min (>60); Estimated Creatinine Clearance 17.81 ml/min; Glucose 182 mg/dL (74-106); Potassium 4.2 mmol/L (3.5-5.1); Sodium Level 134 mmol/L (136-145); Troponin-I HS 731.5 pg/mL (3.0-53.7)
--- NOTE | 2021-05-11 17:10 | ED.RN ---
unabe to perform nih due to sedation.
--- NOTE | 2021-05-11 17:22 | CHAPLAIN ---
Type of Pastoral Visit ___ Initial Visit ___ Follow-up Visit ___ On-call Visit ___ General Patient Visit ___ Spiritual Assessment ___ Family Conference ___ Bereavement _x__ Rapid Response ___ Code Blue ___ Other (describe below) Pastoral Care Referral From ___ Patient ___ Family ___ Nurse ___ Physician ___ Truck Service Technician ___ Make Ready Worker _x__ Other (describe below) Sacrament/Intervention _x__ Active listening ___ Anointing ___ Mosque ___ Bereavement ___ Communion ___ Monique exploration ___ ___ Life review ___ Prayer ___ Reconciliation ___ Sacrament of Sick _x__ Supportive presence ___ Wedding ___ Other (describe below) Pastoral Comments responsed to rapid response; discovered son of pt in waiting room and offered presence and support; several times made communication between staff and family; DIL also came to hospital; sat with family; assisted staff; assisted other patients with directions etc. as they were also incoming for ED
[2021-05-11] MEDS: Acetaminophen 650 MG Suppository RC (18:28)
--- NOTE | 2021-05-11 22:04 | ED.RN ---
hospice arrived [id number]. [phone]
[2021-05-11] MEDS: LORazepam 2 MG/ML Syringe 1 MG IV (23:40)
[2021-05-11] MEDS: fentaNYL 100 MCG/2 ML Ampul 50 MCG IV (23:41)
[2021-05-12 13:31] LABS: Pathologist Review Reviewed
== END 2021-05-11 23:50 | disposition hospice, inpatient (51) ==
PROVIDERS: Emergency Provider Emergency Medicine; PCP Family Medicine
DX: I60.9 Nontraumatic subarachnoid hemorrhage, unspecified (principal); R29.723 NIHSS score 23; M62.82 Rhabdomyolysis; N17.9 Acute kidney failure, unspecified; I21.4 Non-ST elevation (NSTEMI) myocardial infarction; I49.3 Ventricular premature depolarization; I10 Essential (primary) hypertension; G47.00 Insomnia, unspecified; K57.90 Diverticulosis of intestine, part unspecified, without perforation or abscess without bleeding; I27.21 Secondary pulmonary arterial hypertension; I48.20 Chronic atrial fibrillation, unspecified; I87.2 Venous insufficiency (chronic) (peripheral); Z66 Do not resuscitate; Z79.01 Long term (current) use of anticoagulants; Z79.899 Other long term (current) drug therapy
CPT/HCPCS: 31500; 31720; 51702; 70450; 71045; 80048; 82550; 84484; 85025; 85610; 85730; 93005; 94002; 96365; 96366; 96375; 99251; 99285; C9132; J7030; A4216; G0463; J3490